=== PATIENT | male | born 1940 | race Hispanic/Latino ===

== ENCOUNTER 2021-02-15 11:16 | Emergency (ER) | payer MEDICARE ==
[~2021-02-15 11:16] MED LIST: AMLO-258 PO; APIX2.5T PO; ASPI-891 PO; ATOR40TA69 PO; CARV12.511 PO; INSLAN SQ; LEVE750T10 PO; LOSA25TA41 PO; METF-444 PO; SITA100T12 PO
[2021-02-15 12:05] LABS: BASOPHILS % (AUTO) 0.3 % (0.0-5.0); EOSINOPHILS % (AUTO) 2.5 % (0.0-8.0); HEMATOCRIT 32.8 % (42-54); LYMPHOCYTES % (AUTO) 17.9 % (21.0-51.0); MEAN CORPUSCULAR HGB CONC 34.5 g/dL (32.0-36.0); MEAN CORPUSCULAR VOLUME 84.3 fL (79-99); MONOCYTES % (AUTO) 7.5 % (3.0-13.0); NEUTROPHILS % (AUTO) 71.5 % (40.0-77.0); PLATELET COUNT (AUTO) 81 K/uL (130-400); RED BLOOD CELL COUNT(AUTO) 3.89 MIL/uL (4.50-6.20); WHITE BLOOD COUNT (AUTO) 7.3 K/uL (4.8-10.8)
[2021-02-15 12:20] LABS: ALBUMIN 3.2 g/dL (3.5-5.0); BILIRUBIN,TOTAL 0.5 mg/dL (0.2-1.0); CREATININE 1.3 mg/dL (0.5-1.5); CRP QUANTITATIVE 4.3 mg/L (0.00-9.0); POTASSIUM 4.1 mmol/L (3.5-5.1); TOTAL PROTEIN, SERUM 7.2 g/dL (6.0-8.3)
[2021-02-15 13:09] LABS: ERYTHROCYTE SEDIMENTATION RATE 38 MM/HR (0-20)
[2021-02-15] MEDS ORDERED: IOHEXOL-350 50ML VIAL IV ONE (14:13)
[2021-02-15] MEDS ORDERED: CEFTRIAXONE SODIUM 1 GM ONE (16:22)
[2021-02-15] MEDS ORDERED: SODIUM CHLORIDE 0.9% 100 ML IV ONE (16:22)
== END 2021-02-15 17:28 | disposition home or self-care (01) ==
LOC: EDH 11:16
DX: L03.313 Cellulitis of chest wall (principal); L72.3 Sebaceous cyst; E11.9 Type 2 diabetes mellitus without complications; I10 Essential (primary) hypertension
CPT/HCPCS: 36415; 71260; 80053; 85025; 85651; 86140; 96365; 99285; J0696; Q9967

== ENCOUNTER 2022-07-29 17:28 | Emergency (ER) | payer MEDICARE ==
[~2022-07-29 17:28] MED LIST changes: -AMLO-258 PO; -APIX2.5T PO; -ASPI-891 PO; -CARV12.511 PO; +FINA5TAB41 PO; -INSLAN SQ; -LOSA25TA41 PO; -METF-444 PO; -SITA100T12 PO
[2022-07-29 18:59] LABS: HEMATOCRIT 26.5 % (42-54); MEAN CORPUSCULAR HEMOGLOBIN 31.4 pg (27.0-33.0); MEAN CORPUSCULAR HGB CONC 34.7 g/dL (32.0-36.0); MEAN CORPUSCULAR VOLUME 90.4 fL (79-99); RED BLOOD CELL COUNT(AUTO) 2.93 MIL/uL (4.50-6.20); RED CELL DISTRIBUTION WIDTH 14.6 % (11.0-15.5); WHITE BLOOD COUNT (AUTO) 7.1 K/uL (4.8-10.8)
[2022-07-29] MEDS ORDERED: BACI30OI6 TP (19:08)
[2022-07-29 19:09] LABS: CREATININE 1.7 mg/dL (0.5-1.5); POTASSIUM 4.4 mmol/L (3.5-5.1)
[2022-07-29 19:14] LABS: ALBUMIN 2.8 g/dL (3.5-5.0); TOTAL PROTEIN, SERUM 6.4 g/dL (6.0-8.3)
[2022-07-29] MEDS ORDERED: BACITRACIN 28.4 GM OINT TP ONE (19:30)
[2022-07-29 19:33] VITALS: BP 148/57
[2022-07-29] MEDS ORDERED: BACITRACIN 1 EACH PACKET TP ONE (19:36)
== END 2022-07-29 20:44 | disposition home or self-care (01) ==
LOC: EDH 17:28
DX: S61.411A Laceration without foreign body of right hand, initial encounter (principal); E11.9 Type 2 diabetes mellitus without complications; E78.00 Pure hypercholesterolemia, unspecified; I10 Essential (primary) hypertension; Z79.899 Other long term (current) drug therapy; Z60.2 Problems related to living alone; W18.09XA Striking against other object with subsequent fall, initial encounter; Y93.01 Activity, walking, marching and hiking; Y92.89 Other specified places as the place of occurrence of the external cause; Y99.8 Other external cause status
CPT/HCPCS: 36415; 80053; 83605; 85027; 87040; 87070; 87076; 87077; 87186